=== PATIENT | male | born 1995 | race Caucasian/White ===

== ENCOUNTER 2017-02-06 20:28 | Emergency (ER) | payer OTHER ==
[~2017-02-06] VITALS: Ht 185.4 cm; Wt 84.1 kg
[2017-02-06 20:42] VITALS: TEMP 37.2; Ht 185.4 cm; Wt 84.1 kg
--- NOTE | 2017-02-06 21:30 | DIAGNOSTIC IMAGING REPORT ---
RIGHT KNEE 3 VIEWS HISTORY: Right knee injury. COMPARISON: None. FINDINGS: No dislocation. Best seen on the lateral view there is a nondisplaced fracture at the posterior lip of the lateral tibial plateau. Moderate lipohemarthrosis. No radiopaque foreign bodies. IMPRESSION: Nondisplaced fracture at the posterior lip of the lateral tibial plateau with associated moderate lipohemarthrosis. Electronically signed by: Jason Khan M.D. 02/06/2017 9:27 PM Dictated Date/Time: 02/06/2017 9:25 PM
--- NOTE | 2017-02-06 21:53 | DIAGNOSTIC IMAGING REPORT ---
RIGHT KNEE CT CT DOSE: 148.30 mGy.cm HISTORY: Right knee pain - f/u tibial plateau fx Right TECHNIQUE: Multiaxial CT images of the right knee were performed and reformatted in the sagittal and coronal plane without the use of contrast. COMPARISON: Right knee 02/06/2017. FINDINGS: There is again noted a small, essentially nondisplaced fracture at the posterior lip of the lateral tibial plateau. This demonstrates a maximal depression 1 mm. No dislocation. No additional fractures identified. Moderate lipohemarthrosis. IMPRESSION: 1. A small essentially nondisplaced fracture at the posterior lip of the lateral tibial plateau. 2. Moderate lipohemarthrosis. Electronically signed by: Jason Khan M.D. 02/06/2017 9:51 PM Dictated Date/Time: 02/06/2017 9:48 PM
[2017-02-06] MEDS ORDERED: NORCO 5/325MG HOME PACK PO ONE (23:00)
[2017-02-06] MEDS ORDERED: HYDR-5688 PO (23:04)
--- NOTE | 2017-02-06 23:06 | EMERGENCY ROOM VISIT NOTE ---
ED Visit Note First contact with patient: 20:45 Chief Complaint: RIGHT Knee Injury History of Present Illness: This patient is a 21-year-old male who presents to the Emergency Department this evening for evaluation of their RIGHT knee Knee Injury. Patient states that they injured the knee while playing soccer. He reports planting and twisting while here in a pop. He had immediate pain and swelling. They report moderate pain over the posterior aspect of the knee after twisting the knee. Pain is worse with ambulation. They deny any numbness or tingling into the distal extremity including the toes. They deny any pain extending into the affected foot or leg. Patient reports no previous fractures or surgeries of the affected knee. Patient rates his current discomfort as a 6/ 10. Patient has tried nothing for their pain. Medications: No current medications. Allergies: No known allergies. PMH: No pertinent past medical history. SHx: Patient is a 21-year-old [employer] student who lives with roommates. ROS: All pertinent positive and negative review of systems are appropriately documented in the History of Present Illness. Physical Exam: VITAL SIGNS - Vital signs and nursing notes were reviewed. GENERAL - 21-year-old male appearing his stated age and in noticeable discomfort throughout the exam. MUSCULOSKELETAL - RIGHT knee with moderate joint effusion. No erythema or ecchymosis. Moderate tenderness to palpation appreciated over the posterior aspect of the affected knee. +3/5 strength appreciated RIGHT versus left secondary to patient discomfort. No posterior sag sign. RANGE OF MOTION: Greater than 90 Flexion with 0 Extension. PATELLAR APPREHENSION TEST: Unremarkable. NEUROLOGIC/VASCULAR - Neurovascularly intact distally with +3/5 dorsalis pedis pulses palpated bilaterally. Normal sensation to light and sharp touch appreciated distally. IMAGING: RIGHT KNEE 3 VIEWS HISTORY: Right knee injury. COMPARISON: None. FINDINGS: No dislocation. Best seen on the lateral view there is a nondisplaced fracture at the posterior lip of the lateral tibial plateau. Moderate lipohemarthrosis. No radiopaque foreign bodies. IMPRESSION: Nondisplaced fracture at the posterior lip of the lateral tibial plateau with associated moderate lipohemarthrosis. RIGHT KNEE CT CT DOSE: 148.30 mGy.cm HISTORY: Right knee pain - f/u tibial plateau fx Right TECHNIQUE: Multiaxial CT images of the right knee were performed and reformatted in the sagittal and coronal plane without the use of contrast. COMPARISON: Right knee 02/06/2017. FINDINGS: There is again noted a small, essentially nondisplaced fracture at the posterior lip of the lateral tibial plateau. This demonstrates a maximal depression 1 mm. No dislocation. No additional fractures identified. Moderate lipohemarthrosis. IMPRESSION: 1. A small essentially nondisplaced fracture at the posterior lip of the lateral tibial plateau. 2. Moderate lipohemarthrosis. ED Course: Patient was seen and evaluated by myself. Patient was provided an ice pack for comfort. X-ray of the knee was obtained. CT was obtained in follow-up. Patient was educated on today's findings. I did discuss the case with with surgery. They suggested immobilization as well as nonweightbearing. They will see the patient tomorrow in office. The patient was educated on this. He was provided Muir for break through pain at home. He was educated on worrisome symptoms for return visit to the emergency department. Patient discharged home in good condition. In the evaluation and treatment of this patient, the following differential diagnoses were considered: Patellar Fracture, Distal Femur Fracture, ACL Injury , PCL Injury, Collateral Ligament Injury, Pes Anserine Bursitis, Maisonneuve Fracture. Impression: RIGHT Posterior Tibial Plateau Fracture Discharge Instructions: You have been treated in the Emergency Department for your RIGHT Tibial Plateau Fraction. You have been prescribed Muir to be used for pain control. This is a narcotic medication. You cannot drive or consume alcohol while on this medicine. This medicine should only be used for pain that cannot be controlled with over-the- counter pain medicines. For pain control, you can use the following [id number] medicines (if >12 yo): - Regular strength (325mg/tab) Tylenol (acetaminophen) 2 tabs every 4-6 hours as needed. Do not exceed 12 tablets in a 24 hour period. Avoid taking more than 4 grams (4000 mg) of Tylenol per day. This includes any other sources of acetaminophen you may take on a regular basis. - Regular strength (200 mg/tab) Advil (ibuprofen) 1-2 tabs every 4-6 hours as needed. Do not exceed a dose of 3200 mg per day. If this is a recent injury (<24 hrs), ice can be applied to the area of pain for the first 3 days to help decrease pain and inflammation. Ice massages can be performed by freezing water in a paper cup, peeling back the cup to expose the ice and then massaging over the affected area. You have been provided the number for an Orthopaedic Surgeon. You should call this number as soon as possible to establish a follow-up visit from today's Emergency Department visit. Keep the knee brace in place until cleared by Orthopedics. Use the crutches you have been provided to keep ALL weight off of the knee until seen and cleared by orthopedic surgery. Return to the Emergency Department if your current symptoms worsen despite treatment course outlined above. Current/Historical Medications Scheduled PRN Hydrocodone/Acetaminophen 5MG/325MG (Muir 5MG/325MG), 1-2 TABLET PO Q4H PRN for Pain Allergies Coded Allergies: No Known Allergies (Unverified , 02/06/17) Vital Signs Date Time Temp Pulse Resp B/P Pulse Ox O2 Delivery O2 Flow Rate FiO2 02/06/17 23:13 81 16 123/67 98 02/06/17 20:42 37.2 88 18 122/59 96 Room Air Medications Administered Medications (Trade) Dose Ordered Sig/Melany Route Start Time Stop Time Status Last Admin Dose Admin Acetaminophen/ Hydrocodone Bitart (Muir 5/325mg Home Pack) 1 homepack UD ONCE PO 02/06/17 23:00 02/06/17 23:01 DC 02/06/17 23:10 1 HOMEPACK Departure Information Impression Primary Impression: Tibial plateau fracture, right Dispostion Home / Self-Care Condition GOOD Prescriptions Hydrocodone/Acetaminophen 5MG/325MG (Muir 5MG/325MG) Tab 1-2 TABLET PO Q4H Y for Pain, #16 TAB For Initial Treatment Prov: Joey Abad, [place] 02/06/17 Referrals No Doctor, Assigned (PCP) Darryn Nair M.D. Patient Instructions My [facility] Additional Instructions You have been treated in the Emergency Department for your RIGHT Tibial Plateau Fraction. You have been prescribed Muir to be used for pain control. This is a narcotic medication. You cannot drive or consume alcohol while on this medicine. This medicine should only be used for pain that cannot be controlled with over-the- counter pain medicines. For pain control, you can use the following [id number] medicines (if >12 yo): - Regular strength (325mg/tab) Tylenol (acetaminophen) 2 tabs every 4-6 hours as needed. Do not exceed 12 tablets in a 24 hour period. Avoid taking more than 4 grams (4000 mg) of Tylenol per day. This includes any other sources of acetaminophen you may take on a regular basis. - Regular strength (200 mg/tab) Advil (ibuprofen) 1-2 tabs every 4-6 hours as needed. Do not exceed a dose of 3200 mg per day. If this is a recent injury (<24 hrs), ice can be applied to the area of pain for the first 3 days to help decrease pain and inflammation. Ice massages can be performed by freezing water in a paper cup, peeling back the cup to expose the ice and then massaging over the affected area. You have been provided the number for an Orthopaedic Surgeon. You should call this number as soon as possible to establish a follow-up visit from today's Emergency Department visit. Keep the knee brace in place until cleared by Orthopedics. Use the crutches you have been provided to keep ALL weight off of the knee until seen and cleared by orthopedic surgery. Return to the Emergency Department if your current symptoms worsen despite treatment course outlined above. Problem Qualifiers Primary Impression: Tibial plateau fracture, right Encounter type: initial encounter Fracture type: closed Qualified Codes: S82.141A - Displaced bicondylar fracture of right tibia, initial encounter for closed fracture
[2017-02-06 23:13] VITALS: BP 123/67; PULSE 81; O2SAT 98
== END 2017-02-06 23:14 | disposition home or self-care (01) ==
LOC: C.EDB 20:29 → C.EDD 23:14
DX: S82.291A Other fracture of shaft of right tibia, initial encounter for closed fracture (principal); X50.1XXA Overexertion from prolonged static or awkward postures, initial encounter; Y92.322 Soccer field as the place of occurrence of the external cause; Y93.66 Activity, soccer

== ENCOUNTER → 2017-02-12 | Outpatient (CLI) | payer OTHER ==
[~2017-02-12] MED LIST: HYDR-5688 PO
--- NOTE | 2017-02-12 13:53 | DIAGNOSTIC IMAGING REPORT ---
MRI OF THE RIGHT KNEE CLINICAL HISTORY: Right knee pain. Known tibial plateau fracture. COMPARISON STUDY: Radiographs and CT of the right knee dated 02/06/2017. TECHNIQUE: MRI of the right knee was performed utilizing proton density, T1, and T2-weighted sequences in the axial, sagittal, coronal planes. IV contrast was not administered for this examination. FINDINGS: Menisci: There is an oblique tear involving the posterior horn of the medial meniscus. The lateral meniscus is intact. Ligaments: The anterior and posterior cruciate ligaments are intact. The medial and lateral collateral ligaments are within normal limits. Extensor mechanism: The extensor mechanism is intact. Hoffa's fat pad is normal in appearance. Articular cartilage and bone: There is marrow edema identified within the posterior aspect of the lateral tibial plateau. Fracture line is evident. No significant depression is seen. The overlying cartilage appears intact. The articular cartilage is intact and well maintained all 3 compartments. Joint effusion: There is a small joint effusion. Soft tissues: The musculature surrounding the knee joint is normal in bulk and signal intensity. There is mild deep soft tissue edema identified along the lateral aspect of the knee and in the popliteal fossa. IMPRESSION: 1. Again seen is a nondepressed fracture involving the posterior lip of the lateral tibial plateau with associated marrow edema. The overlying cartilage appears intact. 2. There is a small oblique tear involving the posterior horn of the medial meniscus. 3. The lateral meniscus, the collateral ligament, an the cruciate ligaments are preserved. 4. Small joint effusion. Electronically signed by: Nsetor Richardson M.D. 02/12/2017 1:52 PM Dictated Date/Time: 02/12/2017 1:47 PM
== END | disposition home or self-care (01) ==
LOC: C.MRIBC 12:38
PROVIDERS: ATTEND Physical Medicine & Rehabilitation Sports Medicine
DX: S83.241A Other tear of medial meniscus, current injury, right knee, initial encounter (principal); X58.XXXA Exposure to other specified factors, initial encounter